=== PATIENT | female | born 1935 | race Caucasian/White ===

== ENCOUNTER → 2018-04-25 | Outpatient (CLI) | payer MEDICARE ==
[~2018-04-25] MED LIST: LIDOCAINE HCL 2% JELLY 5 ML ONE
[2018-04-25 16:21] VITALS: BP 138/70
== END | disposition home or self-care (01) ==
LOC: WHH 14:45
PROVIDERS: ATTEND Family Medicine
DX: I83.023 Varicose veins of left lower extremity with ulcer of ankle (principal); L97.322 Non-pressure chronic ulcer of left ankle with fat layer exposed; I89.0 Lymphedema, not elsewhere classified; E66.01 Morbid (severe) obesity due to excess calories; E03.9 Hypothyroidism, unspecified; E78.5 Hyperlipidemia, unspecified; G25.0 Essential tremor; N18.9 Chronic kidney disease, unspecified
CPT/HCPCS: 11042; 11045; 36415; 84134; 85651; 86140; A6197; A6248; G0463

== ENCOUNTER → 2018-04-28 | Outpatient (CLI) | payer MEDICARE | END | disposition home or self-care (01) | LOC: WHH 10:50 | PROVIDERS: ATTEND Family Medicine | DX: I83.023 Varicose veins of left lower extremity with ulcer of ankle (principal); L97.321 Non-pressure chronic ulcer of left ankle limited to breakdown of skin; I89.0 Lymphedema, not elsewhere classified; E66.01 Morbid (severe) obesity due to excess calories; E03.9 Hypothyroidism, unspecified; E78.5 Hyperlipidemia, unspecified; N18.9 Chronic kidney disease, unspecified | CPT/HCPCS: 93922; G0463 ==

== ENCOUNTER → 2018-04-29 | Outpatient (CLI) | payer MEDICARE ==
[~2018-04-29] MED LIST changes: +HONEY 1 APPL/ML TUBE TP ONE
[2018-04-29 15:44] VITALS: BP 150/63
== END | disposition home or self-care (01) ==
LOC: WHH 14:15
PROVIDERS: ATTEND Family Medicine
DX: I83.023 Varicose veins of left lower extremity with ulcer of ankle (principal); L97.322 Non-pressure chronic ulcer of left ankle with fat layer exposed; I89.0 Lymphedema, not elsewhere classified; E66.01 Morbid (severe) obesity due to excess calories; E03.9 Hypothyroidism, unspecified; E78.5 Hyperlipidemia, unspecified; N18.9 Chronic kidney disease, unspecified; R79.82 Elevated C-reactive protein (CRP); G25.0 Essential tremor
CPT/HCPCS: 11042; 11045; 87070; 87077 ×2; 87186 ×2; A6197

== ENCOUNTER → 2018-05-20 | Outpatient (CLI) | payer MEDICARE ==
[~2018-05-20] MED LIST changes: -HONEY 1 APPL/ML TUBE TP ONE; +LIDOCAINE HCL 4% LTA SOL 4 ML VIAL ONE
[2018-05-20 16:06] VITALS: BP 152/67
== END | disposition home or self-care (01) ==
LOC: WHH 14:25
PROVIDERS: ATTEND Family Medicine
DX: I83.023 Varicose veins of left lower extremity with ulcer of ankle (principal); L97.322 Non-pressure chronic ulcer of left ankle with fat layer exposed; I89.0 Lymphedema, not elsewhere classified; E66.01 Morbid (severe) obesity due to excess calories; E03.9 Hypothyroidism, unspecified; E78.5 Hyperlipidemia, unspecified; N18.9 Chronic kidney disease, unspecified; R79.82 Elevated C-reactive protein (CRP); G25.0 Essential tremor; B95.62 Methicillin resistant Staphylococcus aureus infection as the cause of diseases classified elsewhere
CPT/HCPCS: 11042; 11045; A6197; A6248

== ENCOUNTER → 2018-05-27 | Outpatient (CLI) | payer MEDICARE ==
[~2018-05-27] MED LIST changes: +GENTAMICIN SULFATE 15 GM CREAM.GM. TP ONE; -LIDOCAINE HCL 4% LTA SOL 4 ML VIAL ONE
[2018-05-27 16:24] VITALS: BP 183/68
== END | disposition home or self-care (01) ==
LOC: WHH 14:00
PROVIDERS: ATTEND Family Medicine
DX: I83.023 Varicose veins of left lower extremity with ulcer of ankle (principal); L97.322 Non-pressure chronic ulcer of left ankle with fat layer exposed; I89.0 Lymphedema, not elsewhere classified; E66.01 Morbid (severe) obesity due to excess calories; E03.9 Hypothyroidism, unspecified; E78.5 Hyperlipidemia, unspecified; N18.9 Chronic kidney disease, unspecified; R79.82 Elevated C-reactive protein (CRP); G25.0 Essential tremor; B95.62 Methicillin resistant Staphylococcus aureus infection as the cause of diseases classified elsewhere
CPT/HCPCS: 11042; 11045

== ENCOUNTER → 2018-05-30 | Outpatient (CLI) | payer MEDICARE ==
[2018-05-30 15:08] VITALS: BP 145/67
== END | disposition home or self-care (01) ==
LOC: WHH 13:30
PROVIDERS: ATTEND Family Medicine
DX: I83.023 Varicose veins of left lower extremity with ulcer of ankle (principal); L97.321 Non-pressure chronic ulcer of left ankle limited to breakdown of skin; I89.0 Lymphedema, not elsewhere classified; E66.01 Morbid (severe) obesity due to excess calories; E03.9 Hypothyroidism, unspecified; E78.5 Hyperlipidemia, unspecified; N18.9 Chronic kidney disease, unspecified
CPT/HCPCS: 29580; A6456; G0463

== ENCOUNTER → 2018-06-02 | Outpatient (CLI) | payer MEDICARE ==
[2018-06-02 10:40] VITALS: BP 133/53
== END | disposition home or self-care (01) ==
LOC: WHH 09:00
PROVIDERS: ATTEND Family Medicine
DX: I83.023 Varicose veins of left lower extremity with ulcer of ankle (principal); L97.321 Non-pressure chronic ulcer of left ankle limited to breakdown of skin; I89.0 Lymphedema, not elsewhere classified; E66.01 Morbid (severe) obesity due to excess calories; E03.9 Hypothyroidism, unspecified; E78.5 Hyperlipidemia, unspecified; N18.9 Chronic kidney disease, unspecified
CPT/HCPCS: 29580; A6456; G0463

== ENCOUNTER → 2018-06-06 | Outpatient (CLI) | payer MEDICARE ==
[~2018-06-06] MED LIST changes: -GENTAMICIN SULFATE 15 GM CREAM.GM. TP ONE; -LIDOCAINE HCL 2% JELLY 5 ML ONE; +LIDOCAINE HCL 4% LTA SOL 4 ML VIAL ONE
[2018-06-06 14:05] VITALS: BP 131/64
== END ==
LOC: WHH 13:00
PROVIDERS: ATTEND Family Medicine
DX: I83.023 Varicose veins of left lower extremity with ulcer of ankle (principal); L97.322 Non-pressure chronic ulcer of left ankle with fat layer exposed; I87.2 Venous insufficiency (chronic) (peripheral); I89.0 Lymphedema, not elsewhere classified; E66.01 Morbid (severe) obesity due to excess calories; E03.9 Hypothyroidism, unspecified; E78.5 Hyperlipidemia, unspecified; G25.0 Essential tremor; N18.9 Chronic kidney disease, unspecified
CPT/HCPCS: 11042; 11045; 29580; A6210; A6456

== ENCOUNTER → 2018-06-09 | Outpatient (CLI) | payer MEDICARE ==
[2018-06-09 11:19] VITALS: BP 141/73
== END | disposition home or self-care (01) ==
LOC: WHH 10:45
PROVIDERS: ATTEND Family Medicine
DX: I83.023 Varicose veins of left lower extremity with ulcer of ankle (principal); L97.321 Non-pressure chronic ulcer of left ankle limited to breakdown of skin; I89.0 Lymphedema, not elsewhere classified; I87.2 Venous insufficiency (chronic) (peripheral); E66.01 Morbid (severe) obesity due to excess calories; E03.9 Hypothyroidism, unspecified; E78.5 Hyperlipidemia, unspecified; N18.9 Chronic kidney disease, unspecified
CPT/HCPCS: 29580; A6456; G0463

== ENCOUNTER → 2018-06-13 | Outpatient (CLI) | payer MEDICARE ==
[~2018-06-13] MED LIST changes: +CADEXOMER IODINE 40 GM GEL TP ONE
[2018-06-13 15:26] VITALS: BP 133/74
== END | disposition home or self-care (01) ==
LOC: WHH 14:00
PROVIDERS: ATTEND Family Medicine
DX: I83.023 Varicose veins of left lower extremity with ulcer of ankle (principal); L97.321 Non-pressure chronic ulcer of left ankle limited to breakdown of skin; I89.0 Lymphedema, not elsewhere classified; I87.2 Venous insufficiency (chronic) (peripheral); E66.01 Morbid (severe) obesity due to excess calories; E03.9 Hypothyroidism, unspecified; N18.9 Chronic kidney disease, unspecified; G25.0 Essential tremor; E78.5 Hyperlipidemia, unspecified; B95.62 Methicillin resistant Staphylococcus aureus infection as the cause of diseases classified elsewhere; Z68.1 Body mass index [BMI] 19.9 or less, adult
CPT/HCPCS: 11042; 11045; 29580

== ENCOUNTER → 2018-06-16 | Outpatient (CLI) | payer MEDICARE ==
[~2018-06-16] MED LIST changes: -LIDOCAINE HCL 4% LTA SOL 4 ML VIAL ONE
[2018-06-16 11:21] VITALS: BP 139/58
== END | disposition home or self-care (01) ==
LOC: WHH 10:30
PROVIDERS: ATTEND Family Medicine
DX: I83.023 Varicose veins of left lower extremity with ulcer of ankle (principal); L97.321 Non-pressure chronic ulcer of left ankle limited to breakdown of skin; I89.0 Lymphedema, not elsewhere classified; E66.01 Morbid (severe) obesity due to excess calories; E03.9 Hypothyroidism, unspecified; E78.5 Hyperlipidemia, unspecified; N18.9 Chronic kidney disease, unspecified
CPT/HCPCS: 29580; A6456; G0463

== ENCOUNTER → 2018-06-20 | Outpatient (CLI) | payer MEDICARE ==
[2018-06-20 16:16] VITALS: BP 156/62
== END | disposition home or self-care (01) ==
LOC: WHH 14:10
PROVIDERS: ATTEND Family Medicine
DX: I83.023 Varicose veins of left lower extremity with ulcer of ankle (principal); L97.322 Non-pressure chronic ulcer of left ankle with fat layer exposed; I89.0 Lymphedema, not elsewhere classified; E66.01 Morbid (severe) obesity due to excess calories; E03.9 Hypothyroidism, unspecified; E78.5 Hyperlipidemia, unspecified; N18.9 Chronic kidney disease, unspecified; G25.0 Essential tremor
CPT/HCPCS: 11042; 11045; A6253

== ENCOUNTER → 2018-06-27 | Outpatient (CLI) | payer MEDICARE ==
[~2018-06-27] MED LIST changes: -CADEXOMER IODINE 40 GM GEL TP ONE; +LIDOCAINE HCL 4% LTA SOL 4 ML VIAL ONE
[2018-06-27 15:27] VITALS: BP 135/69
== END | disposition home or self-care (01) ==
LOC: WHH 14:15
PROVIDERS: ATTEND Family Medicine
DX: I83.023 Varicose veins of left lower extremity with ulcer of ankle (principal); L97.322 Non-pressure chronic ulcer of left ankle with fat layer exposed; I87.2 Venous insufficiency (chronic) (peripheral); I89.0 Lymphedema, not elsewhere classified; E66.01 Morbid (severe) obesity due to excess calories; E03.9 Hypothyroidism, unspecified; E78.5 Hyperlipidemia, unspecified; N18.9 Chronic kidney disease, unspecified
CPT/HCPCS: 11042; 11045; A6213

== ENCOUNTER → 2018-07-04 | Outpatient (CLI) | payer MEDICARE ==
[~2018-07-04] MED LIST changes: +LIDOCAINE HCL 2% JELLY 5 ML ONE
[2018-07-04 15:29] VITALS: BP 136/65
== END | disposition home or self-care (01) ==
LOC: WHH 13:30
PROVIDERS: ATTEND Family Medicine
DX: I83.023 Varicose veins of left lower extremity with ulcer of ankle (principal); L97.322 Non-pressure chronic ulcer of left ankle with fat layer exposed; I87.2 Venous insufficiency (chronic) (peripheral); I89.0 Lymphedema, not elsewhere classified; E66.01 Morbid (severe) obesity due to excess calories; E78.5 Hyperlipidemia, unspecified; E03.9 Hypothyroidism, unspecified; G25.0 Essential tremor; Q66.9 Congenital deformity of feet, unspecified; N18.9 Chronic kidney disease, unspecified
CPT/HCPCS: 11042; 11045; A6209; A6252

== ENCOUNTER → 2018-07-08 | Outpatient (CLI) | payer MEDICARE ==
[2018-07-08 16:35] VITALS: BP 160/71
== END | disposition home or self-care (01) ==
LOC: WHH 15:00
PROVIDERS: ATTEND Family Medicine
DX: I83.023 Varicose veins of left lower extremity with ulcer of ankle (principal); L97.321 Non-pressure chronic ulcer of left ankle limited to breakdown of skin; E78.5 Hyperlipidemia, unspecified; E03.9 Hypothyroidism, unspecified; N18.9 Chronic kidney disease, unspecified; E66.01 Morbid (severe) obesity due to excess calories; I89.0 Lymphedema, not elsewhere classified; I87.2 Venous insufficiency (chronic) (peripheral); Q66.9 Congenital deformity of feet, unspecified
CPT/HCPCS: A6209; A6253; G0463

== ENCOUNTER → 2018-07-11 | Outpatient (CLI) | payer MEDICARE ==
[2018-07-11 15:49] VITALS: BP 145/64
== END | disposition home or self-care (01) ==
LOC: WHH 14:00
PROVIDERS: ATTEND Family Medicine
DX: I83.023 Varicose veins of left lower extremity with ulcer of ankle (principal); L97.322 Non-pressure chronic ulcer of left ankle with fat layer exposed; I87.2 Venous insufficiency (chronic) (peripheral); I89.0 Lymphedema, not elsewhere classified; E78.5 Hyperlipidemia, unspecified; E03.9 Hypothyroidism, unspecified; E66.01 Morbid (severe) obesity due to excess calories; N18.9 Chronic kidney disease, unspecified; G25.0 Essential tremor; Q66.9 Congenital deformity of feet, unspecified
CPT/HCPCS: 11042; 11045; A6209; A6253

== ENCOUNTER → 2018-07-18 | Outpatient (CLI) | payer MEDICARE ==
[2018-07-18 15:43] VITALS: BP 140/66
== END | disposition home or self-care (01) ==
LOC: WHH 13:30
PROVIDERS: ATTEND Family Medicine
DX: I83.023 Varicose veins of left lower extremity with ulcer of ankle (principal); L97.322 Non-pressure chronic ulcer of left ankle with fat layer exposed; I87.2 Venous insufficiency (chronic) (peripheral); I89.0 Lymphedema, not elsewhere classified; E03.9 Hypothyroidism, unspecified; E66.01 Morbid (severe) obesity due to excess calories; G25.0 Essential tremor; N18.9 Chronic kidney disease, unspecified; Q66.9 Congenital deformity of feet, unspecified; E78.5 Hyperlipidemia, unspecified
CPT/HCPCS: 11042; 11045; A6209; A6253